=== PATIENT | female | born 1950 | race Caucasian/White ===

== ENCOUNTER → 2017-10-11 | Day surgery (SDC) | payer OTHER, MEDICARE ==
[~2017-10-11] VITALS: Ht 157.5 cm; Wt 83.9 kg
[~2017-10-11] MED LIST: AMLODIPINE BESYL5 M1 PO; ATORVASTATIN CA20 M1 PO; CITALOPRAM HBR20 MG PO; LEVOTHYROXINE88 MCG PO; PANTOPRAZOLE SO40 M1 PO; PRESERVISION L1 EACH PO; PROBIOTIC1 EACH PO; VITAMIN D2000 UNIT PO
--- NOTE | 2017-10-11 08:58 | Operative Report ---
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 Informed consent was obtained. Patient was brought to the operating room where she was placed under propofol sedation and a peribulbar block consisting of bupivacaine and lidocaine was placed without complication behind the right eye. The right eye was prepped and draped in a normal sterile fashion. A speculum was placed in the right eye with good exposure. Paracenteses were made using stab incision. The capsular bag was inflated using viscoelastic and a Lasix cannula. The intraocular lens was freed from all its capsular adhesions and the capsular bag was well-formed. The intraocular lens was brought into the anterior chamber. A 2.4 mm clear corneal incision was made using keratome blade. An intraocular lens PCBOO of 12.5 dpt was verified and confirmed. It was loaded into the injector and injected into the eye and placed entirely within the capsular bag underneath the old intraocular lens. It was noted that the posterior capsule was compromised and vitreous was presenting. Both intraocular lenses were cut in half and removed in their entirety from the eye in its entirety. A conjunctival peritomy was performed and a pars plana vitrectomy was done to remove all presenting vitreous. An intraocular lens MA 60 before meals 12.5 dpt was verified and confirmed. It was folded and inserted into the sulcus and the optic placed in optic capture. Viscoelastic was evacuated from the eye using irrigation and aspiration. There was no vitreous in the anterior chamber. The sclerotomies closed using 7-0 Vicryl as was the conjunctival peritomy. A 10-0 nylon suture was used to close the clear corneal incision. The eye was filled to physiologic pressure using balanced salt solution. The incisions were found to be watertight and the eye held good pressure. Speculum was removed. Ointment was placed on the eye. Followed by patch and shield. The patient was brought to the recovery area where instructions were given to follow-up the next day for routine postoperative care.
== END ==
LOC: STS 01:20
DX: T85.29XA Other mechanical complication of intraocular lens, initial encounter (principal); Y77.2 Prosthetic and other implants, materials and accessory ophthalmic devices associated with adverse incidents; E78.00 Pure hypercholesterolemia, unspecified; I10 Essential (primary) hypertension; N28.9 Disorder of kidney and ureter, unspecified; E07.9 Disorder of thyroid, unspecified
CPT/HCPCS: J2001; J2250; V2632